=== PATIENT | female | born 1990 | race American Indian/Alaskan Native ===

== ENCOUNTER 2021-12-06 13:54 | Inpatient (IN) | payer MEDICAID ==
[2021-12-06] MEDS ORDERED: ACETAMINOPHEN 325 MG TAB PO PRN (15:49)
[2021-12-06] MEDS ORDERED: TERBUTALINE 1 MG/1 ML INJ SUB-Q PRN (15:49)
[2021-12-06] MEDS ORDERED: miSOPROStol 200 MCG TAB PR PRN (15:49)
[2021-12-06] MEDS ORDERED: LOPERAMIDE 2 MG CAP PO PRN (15:49)
[2021-12-06] MEDS ORDERED: NalbUPHINE 10 MG/1 ML INJ IV PRN (15:49)
[2021-12-06] MEDS ORDERED: fentaNYL 100 MCG/2 ML INJ IV PRN (15:49)
[2021-12-06] MEDS ORDERED: ONDANSETRON 4 MG/2 ML INJ IV PRN (15:49)
[2021-12-06] MEDS ORDERED: OXYTOCIN 10 UNIT/1 ML INJ IM PRN (15:49)
[2021-12-06] MEDS ORDERED: CARBOPROST TROMETHAMINE 250 MCG/1 ML INJ IM PRN (15:49)
[2021-12-06] MEDS ORDERED: MINERAL OIL 30 ML ORAL LIQD PO PRN (15:49)
[2021-12-06] MEDS ORDERED: OXYTOCIN DRIP 30 UNITS/500 ML BAG IV SCH ×2 (16:00)
[2021-12-06] MEDS ORDERED: MAGNESIUM SULFATE 40GM/1000ML 40 GM/1,000 ML BAG IV SCH (16:00)
[2021-12-06] MEDS ORDERED: LACTATED RINGERS 1,000 ML IV SCH ×2 (16:00)
--- NOTE | 2021-12-06 16:09 | History and Physical Report ---
History of Present Illness Date of examination: 12/06/21 Chief complaint: pt presented for monitoring d/t noncompliance, GDM and CHTN. Upon arrival, b/p was elevated. plan made with Dr. Peraza for admission and IOL. GBS neg. SVE closed/70/-2 posterior. Pt denies BUNCH, visual changes or epigastric pain. Plan for cervidil tonight for cervical ripening. all questions addressed. History of present illness: EDC Calculations by LMP: 12/14/2021 Past History : 3 Term Births: 2 Premature Births: 0 Living Children: 2 Para: 2 Mult. Births: 0 Prev : 0 Aborta: 0 Elect. Ab: 0 Spont. Ab: 0 Ectopics: 0 # 1 Delivery date: 2019 Weeks Gestation: 39 labor: no Delivery type: Hours of labor: days Anesthesia type: epidural Delivery location: [place] Sex: Female weight: 6lbs 6oz Comments: IOL CHTN # 2 Delivery date: 2019 Weeks Gestation: 39 labor: no Delivery type: Hours of labor: 24 Anesthesia type: epidural Delivery location: [place] [facility] Sex: Female weight: [id number] Comments: IOL Preeclampsia Past Medical History: Reviewed and updated today: CHTN with Superimposed Preclampsia in last Past Surgical History: Reviewed and updated today: negative Family History Summary: Mother - Has Family History of Hypertension - Entered On: 07/26/2021 Aunt - Has Family History of Diabetes - Entered On: 07/26/2021 MGF - Has Family History of CVA or Stroke - Entered On: 07/26/2021 MGM - Has Family History Coronary Heart Disease female < 65 - Entered On: 07/26/2021 Social History: Reviewed history and no changes required: Patient is single Smoking History: Patient has never smoked. Risk Factors: Smoked Tobacco Use: Never smoker Smokeless Tobacco Use: Never Counseled to Quit/Cut Down: yes Passive Smoke Exposure: no HIV High Risk Behavior: no Caffeine Use: 0 drinks per day Exercise: no Exercise Counseling: yes Seatbelt Use: preg-staff counsel % Family History Risk Factors: Family History of CT in 1 Female Relative Age < 65: yes Family History of CT in 1 Male Relative Age < 55: no No Dietary Counseling Reason: pn yes PAP Smear History: Date of Last PAP Smear: 11/04/2019 Alcohol Use: no Drug Use: no Past Medical History Anesthesia Complications: negative Anemia: negative Autoimmune Disorder: negative Bleeding Disorder: negative Blood Transfusions: negative Breast Disease: negative Diabetes: negative Heart Disease: negative Hypertension: positive Hepatitis/Liver Disease: negative Kidney Disease/UTI: negative Neurologic/Epilepsy/Migraines: negative Phlebitis/Varicosities: negative Psychiatric: negative Pulmonary Disease/Asthma: negative Thyroid Disease: negative Hospitalizations: negative Surgery (Non-coin purse framer): negative Abnormal PAP: negative, normal pap in 2019 SATISH Exposure: negative Infertility: negative Uterine Anomaly: negative Uterine Surgery (not C/S): negative Other Gynecologic Problems: negative Social Hx: Patient is single Smoking History: Patient has never smoked. Infection History Hx of STD: trich HIV Risk Eval: no Hepatitis B Risk Eval: low risk Personal hx. of genital herpes: no Partner hx. of genital herpes: no Rash, Viral, or Febrile illness since last LMP? no Varicella/Chicken Pox Status: Previous Disease TB Risk: no Genetic History Congenital Heart Defect: Mom: no Dad: no Ric Disease: Mom: no Dad: no Thalassemia Mom: no Dad: no Neural Tube Defect Mom: no Dad: no Down's Syndrome Mom: no Dad: no Emiliano-Sachs Mom: no Dad: no Sickle Cell Disease/Trait Mom: no Dad: no Hemophilia Mom: no Dad: no Muscular Dystrophy Mom: no Dad: no Cystic Fibrosis Mom: no Dad: no [place] Chorea Mom: no Dad: no Mental Retardation Mom: no Dad: no Fragile X Mom: no Dad: no Other Genetic/Chromosomal Disorder Mom: no Dad: no Child w/other defect Mom: no Dad: no Enviromental Exposures Enviromental Exposures Reviewed Xray Exposure: no Medication, drug, or alcohol use since LMP: no Chemical/Other Exposure: no Exposure to Cat Liter: no Hx of Parvovirus (Fifth Disease): no Occupational Exposure to Children: none Active Medications (reviewed today): None Current Allergies (reviewed today): No known allergies Past History Past Medical History: other (see HPI) Past Surgical History: other (see HPI) BAG SEWER History: other (see HPI) Family/Genetic History: other (see HPI) - Obstetrical History Expected Date of Delivery: 12/14/21 Actual Gestation: 38 Week(s) 6 Day(s) : 3 Para: 2 Hx # Term Pregnancies: 2 Number of Pregnancies: 0 Spontaneous Abortions: 0 Induced : 0 Number of Living Children: 2 Medications and Allergies Allergies Allergy/AdvReac Type Severity Reaction Status Date / Time No Known Allergies Allergy Unverified 12/06/21 14:42 Active Meds: Active Medications Acetaminophen (Acetaminophen 325 Mg Tab) 650 mg PO Q4H PRN PRN Reason: Pain, Mild (1-3) Carboprost Tromethamine (Carboprost Tromethamine 250 Mcg/1 Ml Inj) 250 mcg IM ONCE PRN PRN Reason: Uterine Bleeding Ephedrine Sulfate (Ephedrine Sulfate 50 Mg/1 Ml Inj) 10 mg IV Q2M PRN PRN Reason: Hypotension Fentanyl (Fentanyl 100 Mcg/2 Ml Inj) 100 mcg IV Q2H PRN PRN Reason: Pain,Severe (7-10) LABOR PAIN Oxytocin/Sodium Chloride (Pitocin/Ns 30 Unit/500ml) 30 units in 500 mls @ 2 mls/hr IV TITR ZURI; Protocol Lactated Ringer's (Lactated Ringers) 1,000 mls @ 125 mls/hr IV DIRECT ZURI Oxytocin/Sodium Chloride (Pitocin/Ns 30 Unit/500ml) 30 units in 500 mls @ 40 mls/hr IV TITR ZURI; Protocol Lactated Ringer's (Lactated Ringers) 1,000 mls @ 125 mls/hr IV DIRECT ZURI Magnesium Sulfate (Magnesium Sulfate 40gm/1000ml) 40 gm in 1,000 mls @ 50 mls/hr IV DIRECT ZURI Magnesium Sulfate (Magnesium Sulfate 4gm/100ml) 4 gm in 100 mls @ 300 mls/hr IV ONCE ONE Stop: 12/06/21 16:08 Lidocaine (Lidocaine (2%) 20 Mg/1 Ml Vial 20 Ml Mdv) 20 ml INFILTRATI ONCE ONE Stop: 12/06/21 15:50 Loperamide HCl (Loperamide 2 Mg Cap) 2 mg PO ONCE PRN PRN Reason: give with Hemabate Mineral Oil (Mineral Oil 30 Ml Oral Liqd) 30 ml PO QHS PRN PRN Reason: Constipation Misoprostol (Misoprostol 200 Mcg Tab) 800 mcg MA ONCE PRN PRN Reason: Uterine Bleeding Nalbuphine HCl (Nalbuphine 10 Mg/1 Ml Inj) 10 mg IV Q2H PRN PRN Reason: Pain, Moderate (4-6) Ondansetron HCl (Ondansetron 4 Mg/2 Ml Inj) 4 mg IV Q8H PRN PRN Reason: Nausea And Vomiting Oxytocin (Oxytocin 10 Unit/1 Ml Inj) 10 unit IM ONCE PRN PRN Reason: Uterine Bleeding Terbutaline Sulfate (Terbutaline 1 Mg/1 Ml Inj) 0.25 mg SUB-Q ONCE PRN PRN Reason: Hyperstimulation/Hypertonicity Review of Systems All systems: negative - Vital Signs Vital signs: Vital Signs Pulse Pulse Ox 99 H 99 12/06/21 14:30 12/06/21 14:30 Temp Pulse Resp BP Pulse Ox 98.3 F 78 135/98 99 12/06/21 14:32 12/06/21 16:02 12/06/21 16:02 12/06/21 16:00 - Physical Exam Breasts: Positive: normal Cardiovascular: Regular rate Lungs: Positive: Normal air movement Abdomen: Positive: normal appearance, soft Genitourinary (Female): Positive: normal external genitalia, normal perenium Vulva: both: normal Vagina: Positive: normal moisture Uterus: Positive: normal size, normal contour Extremities: Positive: normal. Negative: edema Deep Tendon Reflex Grade: Normal +2 - Obstetrical FHR: category 1 Uterine Contraction Monitor Mode: External Cervical Dilatation: 0 Cervical Effacement Percentage: 70 station: -2 Uterine Contraction Frequency (min): irregular Uterine Contraction Pattern: Irregular Uterine Tone Measurement Phase: Resting Uterine Contraction Intensity: Mild Results All other labs normal. Assessment and Plan 31y/o @ 38+6 weeks in triage for prenata; testing d/t noncompliance with office and MFM visits. complicated by HTN w/ hx of pre-e prev and GDM dx by 1hGTT @ 26 weeks of 219. P: Admit for IOL EFW 3561 by u/s today, BPP 8/8, JONATAN 8, cephalic - Patient Problems (1) 38 weeks gestation of Current Visit: Yes Status: Acute (2) GDM (gestational diabetes mellitus) Current Visit: Yes Status: Acute Qualifiers: Trimester: third trimester Plan to address problem: accuchecks AC/HS while tolerating po food (3) HTN (hypertension) Current Visit: Yes Status: Acute Qualifiers: Hypertension type: primary hypertension Qualified Code(s): I10 - Essential (primary) hypertension Plan to address problem: pre-e labs - questionable superimposed pre-e Strict I&O Mag sulfate for severe range b/p's or labs indicative of pre-e (4) Non-compliance Current Visit: Yes Status: Acute Plan to address problem: Pt has not been in office since 11/15 d/t childcare and travel barriers She has also not been seen by [facility] in same amount of time. u/s ordered for EFW/JONATAN and presentation. (5) Rh negative state in antepartum period Current Visit: Yes Status: Acute Plan to address problem: rhogam workup post delivery
[2021-12-06] MEDS ORDERED: LIDOCAINE (2%) 20 MG/1 ML VIAL 20 ML MDV INFILTRATI ONE (16:30)
[2021-12-06] MEDS ORDERED: MAGNESIUM SULFATE 4 GM/100 ML BAG IV ONE (17:00)
[2021-12-06 17:45] LABS: Bacteria,Urine 2+ /HPF (Negative); Bilirubin,Urine NEG (Negative); Blood,Urine NEG (Negative); Color,Urine Amber (Yellow); Mucus,Urine 2+ /HPF; Urobilinogen,Urine < 2.0 mg/dL (<2.0)
[2021-12-06 17:50] LABS: Alanine Aminotransferase 8 units/L (7-56); Uric Acid 5.8 mg/dL (3.5-7.6)
[2021-12-06] MEDS ORDERED: DINOPROSTONE 10 MG VAG SUPP VG SCH (18:00)
--- NOTE | 2021-12-06 18:26 | Ultrasound Report ---
ULTRASOUND OBSTETRIC INDICATION / CLINICAL INFORMATION: GDM AND HTN. Clinical Gestational Age (GA) in weeks, days: 38, 6 TECHNIQUE: Transabdominal. COMPARISON: None available. FINDINGS: Single intrauterine . Biparietal Diameter = 8.7 cm = 35, 0 weeks, days Head Circumference = 31.4 cm = 35, 2 weeks, days Abdominal Circumference = 37 cm = 41, 0 weeks, days Femur Length = 7.3 cm = 37, 1 weeks, days Average Ultrasound Age (AUA) = 37, 1 weeks, days Heart Rate: 155 beats per minute. Estimated Weight in grams (if calculated): 3561 Estimated Weight Growth Percentile (if calculated): 64 Position: cephalic. Amniotic Fluid Volume: normal Amniotic Fluid Index (JONATAN) in cm (if calculated): 8.8. IMPRESSION: 1. Single, living intrauterine with estimated sonographic age of 37, 1 weeks, days. 2. No significant sonographic abnormality. ULTRASOUND BIOPHYSICAL PROFILE INDICATION / CLINICAL INFORMATION: GDM AND HTN. COMPARISON: None available. FINDINGS: BREATHING MOVEMENT = 2 GROSS BODY MOVEMENT = 2 TONE = 2 QUALITATIVE AMNIOTIC FLUID VOLUME = 2 TOTAL BIOPHYSICAL SCORE = 8/8 AMNIOTIC FLUID INDEX (cm) = 8.8 PRESENTATION: Cephalic. HEART RATE (beats per minute): 155 IMPRESSION: 1. biophysical profile = 8/8 Signer Name: Tariq Bonilla MD Signed: 12/06/2021 6:22 PM Workstation Name: [email or web address]
[2021-12-06 18:27] LABS: Hematocrit 36.2 % (30.3-42.9); Hemoglobin 12.2 gm/dl (10.1-14.3); Mean Corpuscular HGB Conc 34 % (30-34); Mean Corpuscular Volume 84 fl (79-97); Platelet Count 165 K/mm3 (140-440); Red Blood Count 4.31 M/mm3 (3.65-5.03); Red Cell Distribution Width 12.9 % (13.2-15.2)
--- NOTE | 2021-12-07 07:56 | Progress Note ---
Assessment and Plan A: 31 y.o. @ term, IOL d/t cHTN, GDM. - Patient Problems (1) GDM (gestational diabetes mellitus) Current Visit: Yes Status: Acute Qualifiers: Trimester: third trimester Plan to address problem: Accuchecks ordered q 6 hrs. Insulin ordered per protocol if/when needed. (2) HTN (hypertension) Current Visit: Yes Status: Acute Qualifiers: Hypertension type: primary hypertension Qualified Code(s): I10 - Essential (primary) hypertension Plan to address problem: Allow for breakfast. Continue with IOL after breakfast. Continue to monitor blood pressures. Monitor for s/sx of pre eclampsia. Will order anti hypertensive if severe range blood pressures occur. Consider magnesium infusions if blood pressures become severe range and patient develops pre eclampsia symptoms. Subjective - Subjective Date of service: 12/07/21 Principal diagnosis: IUP @ term, GDM, cHTN Interval history: Pt denies BUNCH, blurred vision, spots before her eyes, chest pain, upper abdominal pain, shortness of breath, vaginal bleeding, LOF, and ctxs. Discussed plan to start Pitocin for to continue IOL. Pt verbalized understanding. Patient reports: movement normal, no new complaints, no loss of fluid, no vaginal bleeding, no contractions Objective - Vital Signs Vital Signs: Vital Signs - 12hr 12/06/21 12/06/21 12/06/21 21:49 21:54 21:59 Temperature Pulse Rate 93 H 89 95 H Respiratory Rate Blood Pressure O2 Sat by Pulse 99 98 98 Oximetry 12/06/21 12/06/21 12/06/21 22:04 22:09 22:10 Temperature Pulse Rate 86 86 79 Respiratory Rate Blood Pressure 131/80 O2 Sat by Pulse 98 98 Oximetry 12/06/21 12/06/21 12/06/21 22:14 22:19 22:24 Temperature Pulse Rate 84 82 88 Respiratory Rate Blood Pressure O2 Sat by Pulse 96 96 96 Oximetry 12/06/21 12/06/21 12/06/21 22:26 22:29 22:34 Temperature Pulse Rate 97 H 82 88 Respiratory Rate Blood Pressure O2 Sat by Pulse 94 96 97 Oximetry 12/06/21 12/06/21 12/06/21 22:39 22:44 22:49 Temperature Pulse Rate 100 H 95 H 82 Respiratory Rate Blood Pressure O2 Sat by Pulse 98 97 98 Oximetry 12/06/21 12/06/21 12/06/21 22:50 22:54 22:59 Temperature 98 F Pulse Rate 93 H 84 Respiratory 20 Rate Blood Pressure O2 Sat by Pulse 98 98 97 Oximetry 12/06/21 12/06/21 12/06/21 23:04 23:09 23:14 Temperature Pulse Rate 93 H 85 87 Respiratory Rate Blood Pressure O2 Sat by Pulse 98 99 99 Oximetry 12/06/21 12/06/21 12/06/21 23:19 23:24 23:29 Temperature Pulse Rate 88 90 83 Respiratory Rate Blood Pressure O2 Sat by Pulse 99 98 98 Oximetry 12/06/21 12/06/21 12/06/21 23:34 23:39 23:44 Temperature Pulse Rate 84 94 H 91 H Respiratory Rate Blood Pressure O2 Sat by Pulse 98 98 98 Oximetry 12/06/21 12/06/21 12/06/21 23:49 23:54 23:56 Temperature Pulse Rate 91 H 80 111 H Respiratory Rate Blood Pressure O2 Sat by Pulse 96 97 88 Oximetry 12/06/21 12/07/21 12/07/21 23:59 00:04 00:09 Temperature Pulse Rate 83 95 H 98 H Respiratory Rate Blood Pressure O2 Sat by Pulse 98 97 97 Oximetry 12/07/21 12/07/21 12/07/21 00:14 00:19 00:22 Temperature Pulse Rate 89 98 H 83 Respiratory Rate Blood Pressure 118/73 O2 Sat by Pulse 97 97 Oximetry 12/07/21 12/07/21 12/07/21 00:24 00:29 00:34 Temperature Pulse Rate 88 101 H 82 Respiratory Rate Blood Pressure O2 Sat by Pulse 97 99 97 Oximetry 12/07/21 12/07/21 12/07/21 00:39 00:44 00:49 Temperature Pulse Rate 89 89 84 Respiratory Rate Blood Pressure O2 Sat by Pulse 98 98 99 Oximetry 12/07/21 12/07/21 12/07/21 00:54 00:59 01:04 Temperature Pulse Rate 88 89 79 Respiratory Rate Blood Pressure O2 Sat by Pulse 97 98 98 Oximetry 12/07/21 12/07/21 12/07/21 01:09 01:14 01:19 Temperature Pulse Rate 86 94 H 90 Respiratory Rate Blood Pressure O2 Sat by Pulse 98 98 97 Oximetry 12/07/21 12/07/21 12/07/21 01:24 01:29 01:34 Temperature Pulse Rate 82 81 81 Respiratory Rate Blood Pressure O2 Sat by Pulse 97 97 99 Oximetry 12/07/21 12/07/21 12/07/21 01:43 01:48 01:53 Temperature Pulse Rate 75 77 84 Respiratory Rate Blood Pressure O2 Sat by Pulse 98 99 99 Oximetry 12/07/21 12/07/21 12/07/21 01:58 02:03 02:05 Temperature 98 F Pulse Rate 83 78 Respiratory 18 Rate Blood Pressure O2 Sat by Pulse 99 99 99 Oximetry 12/07/21 12/07/21 12/07/21 02:07 02:08 02:13 Temperature Pulse Rate 88 90 94 H Respiratory Rate Blood Pressure 117/75 O2 Sat by Pulse 98 99 Oximetry 12/07/21 12/07/21 12/07/21 02:18 02:23 02:28 Temperature Pulse Rate 90 82 80 Respiratory Rate Blood Pressure O2 Sat by Pulse 99 99 98 Oximetry 12/07/21 12/07/21 12/07/21 02:33 02:38 02:43 Temperature Pulse Rate 81 78 79 Respiratory Rate Blood Pressure O2 Sat by Pulse 97 98 98 Oximetry 12/07/21 12/07/21 12/07/21 02:48 02:53 02:58 Temperature Pulse Rate 78 77 79 Respiratory Rate Blood Pressure O2 Sat by Pulse 98 98 97 Oximetry 12/07/21 12/07/21 12/07/21 03:03 03:06 03:08 Temperature Pulse Rate 88 84 89 Respiratory Rate Blood Pressure 110/76 O2 Sat by Pulse 97 98 Oximetry 12/07/21 12/07/21 12/07/21 03:13 03:18 03:23 Temperature Pulse Rate 80 81 85 Respiratory Rate Blood Pressure O2 Sat by Pulse 96 97 97 Oximetry 12/07/21 12/07/21 12/07/21 03:28 03:33 03:38 Temperature Pulse Rate 104 H 79 90 Respiratory Rate Blood Pressure O2 Sat by Pulse 98 97 97 Oximetry 12/07/21 12/07/21 12/07/21 03:43 03:48 03:53 Temperature Pulse Rate 65 89 80 Respiratory Rate Blood Pressure O2 Sat by Pulse 98 98 97 Oximetry 12/07/21 12/07/21 12/07/21 03:58 04:03 04:06 Temperature Pulse Rate 88 85 70 Respiratory Rate Blood Pressure 129/78 O2 Sat by Pulse 97 97 Oximetry 12/07/21 12/07/21 12/07/21 04:08 04:13 04:18 Temperature Pulse Rate 88 84 80 Respiratory Rate Blood Pressure O2 Sat by Pulse 97 97 97 Oximetry 12/07/21 12/07/21 12/07/21 04:23 04:28 04:33 Temperature Pulse Rate 79 86 86 Respiratory Rate Blood Pressure O2 Sat by Pulse 97 97 97 Oximetry 12/07/21 12/07/21 12/07/21 04:38 04:43 04:48 Temperature Pulse Rate 85 95 H 85 Respiratory Rate Blood Pressure O2 Sat by Pulse 97 98 98 Oximetry 12/07/21 12/07/21 12/07/21 04:53 04:58 05:03 Temperature Pulse Rate 86 84 101 H Respiratory Rate Blood Pressure O2 Sat by Pulse 98 94 98 Oximetry 12/07/21 12/07/21 12/07/21 05:07 05:08 05:13 Temperature Pulse Rate 83 98 H 90 Respiratory Rate Blood Pressure 91/57 O2 Sat by Pulse 98 98 Oximetry 12/07/21 12/07/21 12/07/21 05:18 05:23 05:28 Temperature Pulse Rate 93 H 85 76 Respiratory Rate Blood Pressure O2 Sat by Pulse 97 97 96 Oximetry 12/07/21 12/07/21 12/07/21 05:32 05:33 05:38 Temperature Pulse Rate 83 95 H 91 H Respiratory Rate Blood Pressure O2 Sat by Pulse 93 98 98 Oximetry 12/07/21 12/07/21 12/07/21 05:43 05:48 05:53 Temperature Pulse Rate 87 72 69 Respiratory Rate Blood Pressure O2 Sat by Pulse 98 98 98 Oximetry 12/07/21 12/07/21 12/07/21 05:58 06:03 06:06 Temperature Pulse Rate 73 81 76 Respiratory Rate Blood Pressure 136/79 O2 Sat by Pulse 97 98 Oximetry 12/07/21 12/07/21 12/07/21 06:08 06:13 06:18 Temperature Pulse Rate 82 79 83 Respiratory Rate Blood Pressure O2 Sat by Pulse 97 98 98 Oximetry 12/07/21 12/07/21 12/07/21 06:23 06:28 06:33 Temperature Pulse Rate 76 78 81 Respiratory Rate Blood Pressure O2 Sat by Pulse 99 99 98 Oximetry 0612/07/21 12/07/21 06:38 06:43 06:58 Temperature Pulse Rate 85 92 H 91 H Respiratory Rate Blood Pressure O2 Sat by Pulse 99 98 97 Oximetry 12/07/21 12/07/21 07:06 07:23 Temperature Pulse Rate 87 83 Respiratory Rate Blood Pressure 122/91 127/80 O2 Sat by Pulse Oximetry - Exam Cardiovascular: Regular rate Lungs: Normal air movement Abdomen: Present: normal appearance, soft Uterus: Present: normal FHR: category 1 Uterine Contraction Monitor Mode: External Cervical Dilatation: 0 (Per RN taking care of patient. ) Uterine Contraction Pattern: Absent Extremities: edema Deep Tendon Reflex Grade: Normal +2 - Labs Labs: Abnormal Labs 12/06/21 12/06/21 12/06/21 17:00 17:00 Unknown RDW 12.9 L Creatinine 0.4 L Lactate Dehydrogenase 386 H Urine WBC (Auto) 82.0 H U Epithel Cells (Auto) 133.0 H Laboratory Results - last 24 hr 12/06/21 12/06/21 12/06/21 17:00 17:00 17:00 WBC 8.4 RBC 4.31 Hgb 12.2 Hct 36.2 MCV 84 MCH 28 MCHC 34 RDW 12.9 L Plt Count 165 Creatinine 0.4 L Estimated GFR > 60 Uric Acid 5.8 AST 32 ALT 8 Lactate Dehydrogenase 386 H Urine Color Urine Turbidity Urine pH Ur Specific [place] Urine Protein Urine Glucose (UA) Urine Ketones Urine Blood Urine Nitrite Urine Bilirubin Urine Urobilinogen Ur Leukocyte Esterase Urine WBC (Auto) Urine RBC (Auto) U Epithel Cells (Auto) Urine Bacteria (Auto) Urine Mucus Syphilis IgG/IgM Ab Nonreactive Blood Type Antibody Screen 12/06/21 12/06/21 17:00 Unknown WBC RBC Hgb Hct MCV MCH MCHC RDW Plt Count Creatinine Estimated GFR Uric Acid AST ALT Lactate Dehydrogenase Urine Color [place] Urine Turbidity Cloudy Urine pH 6.0 Ur Specific [place] 1.019 Urine Protein 30 mg/dl Urine Glucose (UA) Neg Urine Ketones Neg Urine Blood Neg Urine Nitrite Neg Urine Bilirubin Neg Urine Urobilinogen < 2.0 Ur Leukocyte Esterase Lg Urine WBC (Auto) 82.0 H Urine RBC (Auto) 83.0 U Epithel Cells (Auto) 133.0 H Urine Bacteria (Auto) 2+ Urine Mucus 2+ Syphilis IgG/IgM Ab Blood Type O NEGATIVE Antibody Screen Negative
[2021-12-07] MEDS ORDERED: DEXTROSE 50% IN WATER (25GM) 50 ML SYRINGE IV PRN ×2 (13:05→13:14)
[2021-12-07] MEDS ORDERED: INSULIN REGULAR, HUMAN 100 UNITS/1 ML SUB-Q SCH ×2 (14:00→22:00)
--- NOTE | 2021-12-07 19:29 | Event Note ---
Date: 12/07/21 Per RN, patient noted to have bloody show. Was asked to double check patient. Cervical exam . Bloody show noted. Will continue with Pitocin per protocol. Pt aware of plan. Anticipate .
[2021-12-07] MEDS ORDERED: ePHEDrine SULFATE 50 MG/1 ML INJ IV PRN (22:35)
[2021-12-07] MEDS ORDERED: NALOXONE 0.4 MG/1 ML INJ IV PRN (22:35)
--- NOTE | 2021-12-07 22:37 | Anesthesia Consultation ---
Anesthesia Consult and Med Hx Date of service: 12/07/21 - Airway Anesthetic Teeth Evaluation: Good ROM Head & Neck: Adequate Mental/Hyoid Distance: Adequate Mallampati Class: Class III Intubation Access Assessment: Possibly Difficult - Pulmonary Exam CTA: Yes - Cardiac Exam Cardiac Exam: RRR - Pre-Operative Health Status ASA Pre-Surgery Classification: ASA2 Proposed Anesthetic Plan: Epidural, Spinal - Pulmonary Hx Asthma: No COPD: No Hx Pneumonia: No - Cardiovascular System Hx Hypertension: Yes - Central Nervous System Hx Seizures: No Hx Psychiatric Problems: No - Endocrine Hx Renal Disease: No Hx End Stage Renal Disease: No Hx Hypothyroidism: No Hx Hyperthyroidism: No - Hematic Hx Anemia: No Hx Sickle Cell Disease: No - Other Systems Hx Alcohol Use: No
--- NOTE | 2021-12-07 22:38 | Progress Note ---
Spinal Anesthesia Block - Spinal Anesthesia Block Start Time: 21:51 Stop Time: 22:10 Performed by:: LAWRENCE MERAZ Procedure: Combined Spinal-Epidural Patient is requesting epidural for labor and pain. H&P, labs were reviewed. Patient ID confirmed, all questions and concerns were answered, and consent was signed. Timeout was performed at bedside. Patient in sitting position. Sterile prep and drape was performed. 3ml of 1% lidocaine skin wheal at L3- L4 interspace. 17-gauge Tuohy epidural needle was advanced to loss of resistance with saline technique cm. 25G spinal needle introduced through epidural needle to the spinal space. Clear CSF. Injected .1ml of Precedex in the spinal space. Negative CSF negative blood. Epidural catheter advanced to 15 centimeters. Negative aspiration, test dose 3ml 1.5% Lidocaine with epi - negative. Sterile dressing applied. Patient tolerated procedure.
[2021-12-07] MEDS ORDERED: fentaNYL-BUPIV 2 MCG/ML-0.125% 200 MCG/100 ML BAG EPIDURAL SCH (23:00)
[2021-12-08] MEDS: ePHEDrine SULFATE 50 MG/1 ML INJ IV PRN ×2 (01:50→02:02)
--- NOTE | 2021-12-08 02:03 | Event Note ---
Date: 12/08/21 Received call from RN that patient was feeling more intense vaginal pressure. Cervical exam 10/100/0 to +1. Heavy bloody show noted during pushing. position with pushing unchanged. decelerations noted into the 90s with recovery to baseline. Pitocin turned off, patient reposition to left lateral in bed. O2 applied via face mask. Pushing stopped. Dr. Becker updated and will be in house for delivery.
--- NOTE | 2021-12-08 03:16 | Procedure Note ---
OB Delivery Note - Delivery Date of Delivery: 12/08/21 Television Schedule Coordinator: MICHELLE KERR Estimated blood loss: other (700 ML) - Vaginal Delivery presentation: vertex Delivery position: OA Intrapartum events: mult. late decelerations, mult.variable deceleratio, other(please specify) (Heavy vaginal bleeding noted before delivery of placenta. cHTN, GDM) Delivery induction: cervidil Delivery augmentation: pitocin Delivery monitor: external FHT, external uterine Route of delivery: Delivery placenta: spontaneous Delivery cord: 3 umbilical vessels Episiotomy: none Delivery laceration: none Anesthesia: epidural Delivery comments: Multiple variable, late decelerations, and heavy vaginal bleeding noted before delivery. Dr. Becker available for delivery. of viable male infant. to mothers abdomen for skin to skin. NICU at bedside. Retractions noted during transition. Cord cut and clamped. Infant handed to NICU team for evaluation. Cord gases collected. Large clot and a large amount of vaginal bleeding noted before delivery of placenta. Spontaneous delivery of placenta intact, complete, 3 vessels noted. Perineum and vagina inspected, no lacerations noted. Total EBL 700ml. Cytotec administered buccally. Bleeding stopped with Pitocin and Cytotec. Fundus firm, moderate bleeding noted. Perineum and vagina inspected, no lacerations noted. Infant weight 6-11. Apgars 5,8. taken to NICU for further transitioning. Mother left in stable condition in care of RN. - A at 1 minute: 5 at 5 minutes: 8 Infant Gender: Male ("TJ", 6-11)
[2021-12-08] MEDS ORDERED: MEPERIDINE 25 MG/1 ML INJ IV PRN (03:58)
[2021-12-08] MEDS ORDERED: FAMOTIDINE 20 MG/2 ML INJ IV ONE (04:04)
[2021-12-08 05:05] LABS: Hematocrit 31.7 % (30.3-42.9); Hemoglobin 10.6 gm/dl (10.1-14.3)
[2021-12-08] MEDS ORDERED: PROMETHAZINE 25 MG TAB PO PRN (06:18)
[2021-12-08] MEDS ORDERED: OXYTOCIN DRIP 30 UNITS/500 ML BAG IV SCH (06:18)
[2021-12-08] MEDS ORDERED: LANOLIN/ZINC/DIMETHICONE (LANSINOH) 7 GM TP PRN ×2 (06:18)
[2021-12-08] MEDS ORDERED: ONDANSETRON 4 MG/2 ML INJ IV PRN (06:18)
[2021-12-08] MEDS ORDERED: MAGNESIUM HYDROXIDE (MOM) ORAL LIQD UDC PO PRN (06:18)
[2021-12-08] MEDS ORDERED: PROMETHAZINE 25 MG RECT SUPP PR PRN (06:18)
[2021-12-08] MEDS ORDERED: BENZOCAINE/MENTHOL 20/0.5% TOP SPRAY 56 GM TP PRN (06:18)
[2021-12-08] MEDS ORDERED: miSOPROStol 100 MCG TAB PR PRN (06:18)
[2021-12-08] MEDS ORDERED: diphenhydrAMINE 25 MG CAP PO PRN (06:18)
[2021-12-08] MEDS ORDERED: WITCH HAZEL/ GLYCERIN PAD TP PRN (06:18)
[2021-12-08] MEDS ORDERED: ACETAMINOPHEN 500 MG TAB PO PRN (06:30)
[2021-12-08] MEDS: IBUPROFEN 800 MG TAB PO SCH ×3 (06:36→18:35)
--- NOTE | 2021-12-08 09:31 | Progress Note ---
Assessment and Plan A: 31 y.o. s/p , cHTN. - Patient Problems (1) HTN (hypertension) Current Visit: Yes Status: Acute Qualifiers: Hypertension type: primary hypertension Qualified Code(s): I10 - Essential (primary) hypertension Plan to address problem: Continue to monitor blood pressures. Monitor for s/sx of pre eclampsia. (2) (normal spontaneous vaginal delivery) Current Visit: Yes Status: Acute Plan to address problem: Continue with care. Continue to monitor vaginal bleeding. Anticipate discharge home on 12/09 if pt remains stable. Subjective - Subjective Date of service: 12/08/21 Principal diagnosis: s/p , cHTN Interval history: Pt denies BUNCH, blurred vision, spots before her eyes, chest pain, upper abdominal pain, shortness of breath. Patient reports: appetite normal, voiding normally, pain well controlled, flatus, ambulating normally [place]: doing well Objective - Vital Signs Latest vital signs: Vital Signs Temp Pulse Resp BP BP Pulse Ox Pulse Ox 12/08/21 08:12 99.1 F 94 H 18 113/61 98 12/08/21 06:39 98.3 F 90 18 110/52 100 12/08/21 06:35 98 12/08/21 06:00 118 H 97 12/08/21 05:55 111 H 98 12/08/21 05:54 107 H 107/63 12/08/21 05:50 103 H 98 12/08/21 05:45 113 H 99 12/08/21 05:40 101 H 98 12/08/21 05:35 98 H 98 12/08/21 05:31 119 H 93 12/08/21 05:30 103 H 95 12/08/21 05:25 129 H 98 12/08/21 05:23 116 H 131/80 12/08/21 05:20 108 H 98 12/08/21 05:15 112 H 99 12/08/21 05:10 109 H 98 12/08/21 05:05 115 H 98 12/08/21 05:01 116 H 129/79 12/08/21 05:00 109 H 98 12/08/21 04:44 119 H 98 12/08/21 04:39 111 H 100 12/08/21 04:36 100 H 115/77 06/05/22 04:34 125 H 99 12/08/21 04:29 100 H 100 12/08/21 04:24 111 H 100 12/08/21 04:19 126 H 100 12/08/21 04:16 120 H 93 12/08/21 04:14 120 H 98 12/08/21 04:09 134 H 98 12/08/21 04:04 130 H 100 12/08/21 03:59 121 H 99 12/08/21 03:54 122 H 96 12/08/21 03:49 119 H 97 12/08/21 03:47 112 H 93 12/08/21 03:44 114 H 98 12/08/21 03:42 68 L 12/08/21 03:39 104 H 96 12/08/21 03:37 93 H 93 12/08/21 03:34 81 100 12/08/21 03:29 96 H 100 12/08/21 03:24 88 100 12/08/21 03:20 98.4 F 12/08/21 03:19 86 100 12/08/21 03:14 104 H 84 12/08/21 03:12 97 H 111/64 88 12/08/21 03:09 92 H 100 12/08/21 03:04 134 H 100 12/08/21 02:59 95 H 100 12/08/21 02:58 95 H 102/59 12/08/21 02:54 97 H 100 12/08/21 02:49 128 H 94 12/08/21 02:46 91 H 44 L 12/08/21 02:44 112 H 100 12/08/21 02:39 128 H 71 L 12/08/21 02:34 102 H 103/52 100 05 02:29 106 H 100 12/08/21 02:26 66 77 L 12/08/21 02:24 114 H 81 L 12/08/21 02:19 100 H 100 12/08/21 02:16 104 H 95/53 12/08/21 02:14 106 H 100 06 02:12 103 H 93 12/08/21 02:11 104 H 98/55 12/08/21 02:09 103 H 100 12/08/21 02:07 107 H 99/53 12/08/21 02:04 98 H 100 12/08/21 02:01 93 H 87/57 06/05/22 01:59 97 H 100 12/08/21 01:55 91 H 84/51 12/08/21 01:54 98 H 100 12/08/21 01:49 86 100 12/08/21 01:48 86 86/50 12/08/21 01:45 86 84 12/08/21 01:44 82 100 12/08/21 01:40 72 78 L 12/08/21 01:39 79 98 12/08/21 01:34 78 93 12/08/21 01:29 121 H 99 12/08/21 01:24 76 98 12/08/21 01:19 97 H 100 12/08/21 01:16 112/57 12/08/21 01:14 84 100 12/08/21 01:09 93 H 99 12/08/21 01:04 82 100 12/08/21 00:59 78 99 12/08/21 00:57 105 H 94 12/08/21 00:54 95 H 97 12/08/21 00:49 97 H 94 12/08/21 00:47 85 106/58 12/08/21 00:46 94 H 94 12/08/21 00:44 99 H 97 12/08/21 00:40 102 H 94 12/08/21 00:39 97 H 96 12/08/21 00:34 87 99 12/08/21 00:29 94 H 98 12/08/21 00:24 94 H 99 12/08/21 00:19 79 99 12/08/21 00:16 75 109/63 12/08/21 00:14 86 100 12/08/21 00:09 95 H 99 12/08/21 00:04 73 100 12/07/21 23:59 78 100 12/07/21 23:54 79 99 12/07/21 23:49 85 100 12/07/21 23:46 81 123/84 12/07/21 23:44 83 100 12/07/21 23:39 87 100 12/07/21 23:37 92 H 93 12/07/21 23:34 83 100 12/07/21 23:29 91 H 100 06 23:24 88 100 12/07/21 23:19 88 100 12/07/21 23:14 83 100 12/07/21 23:11 96 H 121/75 12/07/21 23:09 90 100 12/07/21 23:07 91 H 116/73 12/07/21 23:04 87 99 12/07/21 23:03 88 123/76 12/07/21 22:59 92 H 125/79 99 12/07/21 22:57 110 H 91 12/07/21 22:55 86 123/77 12/07/21 22:54 97 H 99 12/07/21 22:51 107 H 124/84 12/07/21 22:49 106 H 97 12/07/21 22:47 106 H 127/83 12/07/21 22:44 107 H 100 12/07/21 22:43 99 H 118/75 12/07/21 22:39 110 H 123/79 98 12/07/21 22:35 97 H 130/79 12/07/21 22:34 103 H 99 12/07/21 22:31 96 H 126/79 12/07/21 22:29 98 H 98 12/07/21 22:27 90 123/75 12/07/21 22:24 82 99 12/07/21 22:23 96 H 131/81 12/07/21 22:19 97 H 134/80 100 12/07/21 22:16 87 139/85 12/07/21 22:14 98 H 100 12/07/21 22:13 107 H 84 12/07/21 22:09 86 100 12/07/21 22:07 93 H 140/90 12/07/21 22:04 95 H 99 12/07/21 21:59 74 100 12/07/21 21:55 82 137/94 12/07/21 21:54 78 100 12/07/21 21:49 92 H 100 12/07/21 21:47 108 H 92 12/07/21 21:44 88 132/91 100 12/07/21 21:39 82 99 12/07/21 21:34 101 H 99 12/07/21 21:29 90 98 12/07/21 21:24 76 98 12/07/21 21:19 77 97 12/07/21 21:14 83 98 12/07/21 21:13 81 133/95 12/07/21 21:09 85 99 12/07/21 21:04 81 99 12/07/21 20:59 75 99 12/07/21 20:54 83 99 12/07/21 20:49 87 98 12/07/21 20:44 77 97 12/07/21 20:43 73 130/84 12/07/21 20:39 79 98 12/07/21 20:34 79 99 12/07/21 20:30 92 H 90 12/07/21 20:29 81 98 12/07/21 20:24 86 99 12/07/21 20:19 79 98 12/07/21 20:14 89 99 12/07/21 20:09 77 99 12/07/21 19:23 98.4 F 18 98 12/07/21 19:19 85 139/94 12/07/21 19:07 98 12/07/21 17:59 75 117/81 12/07/21 16:34 76 119/70 12/07/21 15:22 98.8 F 16 12/07/21 14:52 82 118/63 12/07/21 13:55 90 106/61 0 L 12/07/21 13:47 134 H 85 12/07/21 13:39 81 84 12/07/21 13:34 105 H 99 12/07/21 13:29 84 98 12/07/21 13:24 85 98 12/07/21 13:19 89 97 12/07/21 13:14 88 99 12/07/21 13:09 97 H 99 12/07/21 13:07 84 119/81 12/07/21 13:04 94 H 99 12/07/21 12:59 99 H 100 12/07/21 12:54 91 H 99 12/07/21 12:49 94 H 100 12/07/21 12:44 84 99 12/07/21 12:39 88 98 12/07/21 12:35 83 121/77 12/07/21 12:34 78 100 12/07/21 12:29 100 H 98 12/07/21 12:24 72 99 12/07/21 12:19 95 H 98 12/07/21 12:14 102 H 99 12/07/21 12:09 100 H 99 12/07/21 12:04 79 100 12/07/21 11:59 91 H 100 12/07/21 11:54 104 H 98 12/07/21 11:49 82 99 12/07/21 11:44 107 H 97 12/07/21 11:39 91 H 98 12/07/21 11:34 92 H 98 12/07/21 11:29 83 99 12/07/21 11:24 98 H 98 12/07/21 11:19 96 H 97 12/07/21 11:14 103 H 98 12/07/21 11:09 96 H 100 12/07/21 11:04 98 H 97 12/07/21 10:59 103 H 97 12/07/21 10:54 109 H 98 12/07/21 10:49 89 99 12/07/21 10:44 90 100 12/07/21 10:42 84 124/74 12/07/21 10:39 85 97 12/07/21 10:34 94 H 98 12/07/21 10:29 93 H 98 12/07/21 10:24 123 H 99 12/07/21 10:19 97 H 99 12/07/21 10:18 97.9 F 16 12/07/21 10:14 99 H 98 12/07/21 10:09 100 H 99 12/07/21 10:04 88 98 12/07/21 09:59 90 99 12/07/21 09:56 84 12/07/21 09:55 93 H 124/88 12/07/21 09:54 99 H 100 Intake and Output 12/07/21 12/08/21 12/08/21 22:59 06:59 14:59 Intake Total 397 80 Output Total 600 650 Balance -203 -570 Intake: IV 37 80 PITOCin/NS 30 UNIT/500ML 37 80 30 units In 500 ml @ 40 mls/hr IV TITR ZURI Rx#: [id number] Oral 360 Output: Urine 600 650 Indwelling Catheter 450 Void 600 200 Other: Total, Intake Amount 360 Total, Output Amount 600 200 # Voids Void 1 Estimated Blood Loss 700 - Exam Narrative Exam: Blood pressure ranges for the last few hours have been 100-130's/60-80's. Cardiovascular: Present: Regular rate Lungs: Present: Normal air movement Abdomen: Present: normal appearance, soft Vulva: both: normal Uterus: Present: normal, firm, other (Minimal bleeding noted. ) Extremities: Present: normal Deep Tendon Reflex Grade: Normal +2
[2021-12-08] MEDS: DOCUSATE SODIUM 100 MG CAP PO SCH ×2 (09:49→22:00)
[2021-12-08] MEDS: PRENATAL VIT27-FE FUMARATE-FOLIC ACID VIT TAB PO SCH (09:49)
[2021-12-08] MEDS: oxyCODONE /ACETAMINOPHEN 5-325MG TAB PO PRN ×2 (10:05→16:03)
--- NOTE | 2021-12-08 11:06 | Post Anesthesia Evaluation ---
- Post Anesthesia Evaluation Patient Participated: Yes Airway Patent: Yes Stable Respiratory Function: Yes Nausea/Vomiting: No Temp > 96.8F: Yes Pain Manageable: Yes Adequeate Hydration: Yes Anesthesia Complications: No Block Receding Appropriately: Yes
[2021-12-08 16:27] LABS: Hematocrit 26.4 % (30.3-42.9)
[2021-12-08 18:02] LABS: Blood Urea Nitrogen 8 mg/dL (7-17); Calcium 9.2 mg/dL (8.4-10.2); Hemolysis Index 2
[2021-12-08 18:05] LABS: BUN/Creatinine Ratio 11
[2021-12-08 18:06] LABS: Alanine Aminotransferase 7 units/L (7-56); Uric Acid 6.1 mg/dL (3.5-7.6)
[2021-12-08] MEDS: FERROUS SULFATE 325 MG TAB PO SCH (18:35)
[2021-12-09] MEDS ORDERED: TETANUS,DIPH,PERTUSS(ACELL) VACCINE 0.5 ML SYRINGE IM ONE (06:00)
[2021-12-09] MEDS: IBUPROFEN 800 MG TAB PO SCH ×2 (06:27)
[2021-12-09 09:01] VITALS: BP 115/81
--- NOTE | 2021-12-09 09:27 | Discharge Summary ---
Providers - Providers Date of Admission: 12/06/21 13:55 Date of discharge: 12/09/21 (pt desires discharge home today) Attending physician: NICO JENKINS Primary care physician: NICO JENKINS Hospitalization Reason for admission: induction of labor, IUP at term Delivery: Episiotomy: none Laceration: none Other procedures: none complications: none Discharge diagnosis: IUP at term delivered [place] baby: male Condition at discharge: Good Disposition: 01 HOME / SELF CARE / HOMELESS Plan - Discharge Medications Prescriptions: Lidocain2.5%/Prilocai2.5% [Emla] 5 gm TP ONCE #1 tube - Provider Discharge Summary Activity: routine, no sex for 6 weeks, no heavy lifting 4 weeks, no strenuous exercise Diet: routine Instructions: routine Additional instructions: [] Smoking cessation referral if applicable(refer to patient education folder for contact #) [] Refer to [facility]'s [facility] Booklet Call your doctor immediately for: * Fever > 100.5 * Heavy vaginal bleeding ( >1 pad per hour) * Severe persistent headache * Shortness of breath * Reddened, hot, painful area to leg or breast * Congratulations! Please call [phone] and schedule your blood pressure check in 1 week. Please also call to schedule your elective circumcision in 1 week. Please bring the prescription with you to the appointment. Do not apply before the procedure. Thank you! - Follow up plan Follow up: NICO JENKINS MD [Primary Care Provider] - 7 Days
[2021-12-09] MEDS: FERROUS SULFATE 325 MG TAB PO SCH (10:30)
[2021-12-09] MEDS: DOCUSATE SODIUM 100 MG CAP PO SCH (10:30)
[2021-12-09] MEDS: PRENATAL VIT27-FE FUMARATE-FOLIC ACID VIT TAB PO SCH (10:31)
== END 2021-12-09 12:00 | disposition home or self-care (01) | DRG 774 ==
LOC: TRG 13:54 → APU 13:55 → LD 17:22 → OB 12-08 06:05
PROVIDERS: ADMIT Obstetrics & Gynecology; ATTEND Obstetrics & Gynecology
PROC: 10E0XZZ Delivery of Products of Conception, External Approach (ICD-10-PCS; principal; 2021-12-08)
PROC: 3E0R3BZ Introduction of Anesthetic Agent into Spinal Canal, Percutaneous Approach (ICD-10-PCS; 2021-12-08)
PROC: 00HU33Z Insertion of Infusion Device into Spinal Canal, Percutaneous Approach (ICD-10-PCS; 2021-12-08)
PROC: 3E0234Z Introduction of Serum, Toxoid and Vaccine into Muscle, Percutaneous Approach (ICD-10-PCS; 2021-12-08)
PROC: 3E0234Z Introduction of Serum, Toxoid and Vaccine into Muscle, Percutaneous Approach (ICD-10-PCS; 2021-12-09)
DX: O76 Abnormality in fetal heart rate and rhythm complicating labor and delivery (principal); O10.02 Pre-existing essential hypertension complicating childbirth; Z3A.38 38 weeks gestation of pregnancy; Z37.0 Single live birth; Z20.822 Contact with and (suspected) exposure to COVID-19; O24.429 Gestational diabetes mellitus in childbirth, unspecified control; Z23 Encounter for immunization
CPT/HCPCS: 36415; 59025; 59200; 76816; 76819; 80048; 81001; 82565; 82962; 83615; 84450; 84460; 84550; 85014; 85018; 85027; 85461; 86592; 86850; 86900; 86901; 87086; 88307; G0378; J3490; J2175; J2590; J2790; U0003